=== PATIENT | male | born 1980 ===

== ENCOUNTER 2016-04-27 13:34 | Emergency (ER) | payer SELFPAY ==
[~2016-04-27] VITALS: Ht 177.8 cm; Wt 85.0 kg
[2016-04-27] MEDS ORDERED: LORTAB 5-325 M1 EACH PO (17:36)
[2016-04-27] MEDS ORDERED: NAPROSYN500 MG PO (17:36)
[2016-04-27 17:48] VITALS: BP 165/98
== END 2016-04-27 18:04 | disposition home or self-care (01) ==
LOC: EME 13:34
DX: S86.812A Strain of other muscle(s) and tendon(s) at lower leg level, left leg, initial encounter (principal); M79.89 Other specified soft tissue disorders; Y93.72 Activity, wrestling; F17.200 Nicotine dependence, unspecified, uncomplicated; Z71.6 Tobacco abuse counseling
CPT/HCPCS: 73564; 99281; 99285; J1885